=== PATIENT | male | born 1940 | race Caucasian/White ===

== ENCOUNTER → 2017-12-05 13:20 | Outpatient (CLI) | payer MEDICARE, OTHER, SELFPAY ==
--- NOTE | 2017-12-05 | DI.MG.S_ITS ---
MALE BILATERAL DIGITAL DIAGNOSTIC MAMMOGRAM 3D/2D: 12/05/2017 CLINICAL: Left breast lump. Family history of breast cancer. No prior exams were available for comparison. No significant masses, calcifications, or other findings are seen in either breast. IMPRESSION: INCOMPLETE: NEEDS ADDITIONAL IMAGING EVALUATION There is no mammographic abnormality seen in the left breast to correspond with the area of clinical concern, however, ultrasound is recommended. This exam was interpreted at Station ID: [id number]. NOTE: For mammograms, a report in lay terms will be sent to the patient. Approximately 15% of breast malignancies will not be visualized mammographically. In the management of a palpable breast mass, a negative mammogram must not discourage biopsy of a clinically suspicious lesion. Electronically Signed By: Clarice gusman/patrick:12/05/2017 14:39:00 letter sent: Additional Imaging Needed ACR BI-RADS Category 0: Incomplete [id number]
--- NOTE | 2017-12-05 | DI.US.S_ITS ---
ULTRASOUND OF LEFT BREAST: 12/05/2017 CLINICAL: Palpable left breast lump. Comparison is made to exam dated: 12/05/2017 [facility]. Ultrasound of the left breast was performed on the area of interest. Avalos scale images of the real-time examination were reviewed. IMPRESSION: NEGATIVE There is no sonographic evidence of malignancy. There is no mammographic or sonographic abnormality seen in the left breast to correspond with the area of clinical concern in the lower inner quadrant, however, clinical followup is recommended. This exam was interpreted at Station ID: [id number]. Electronically Signed By: Clarice gusman/patrick:12/05/2017 17:30:47 letter sent: Clinical Evaluation Ultrasound BI-RADS: 1 Negative
== END ==
PROVIDERS: Family Provider Family Medicine; PCP Family Medicine; Visit Provider Family Medicine
DX: R92.8 Other abnormal and inconclusive findings on diagnostic imaging of breast (principal); N63.20 Unspecified lump in the left breast, unspecified quadrant; Z80.3 Family history of malignant neoplasm of breast
CPT/HCPCS: 76642; 77066; G0279

== ENCOUNTER → 2018-03-19 12:48 | Outpatient (CLI) | payer MEDICARE, OTHER, SELFPAY ==
--- NOTE | 2018-03-19 | DI.RAD.S_ITS ---
PROCEDURE: XR CHEST 2V INDICATIONS: COUGH TECHNIQUE: 2 views of the chest were acquired. COMPARISON: [facility], , CHEST 2 VIEW, 06/07/2016, 13:07. FINDINGS: Surgical changes and devices: None. Lungs and pleura: No pleural effusions or pneumothorax. No acute consolidation. Scattered subsegmental atelectasis and/or scarring. A previously described presumed right nipple shadow is less conspicuous Mediastinum: Mediastinal contours are normal. Heart size is normal. Bones and chest wall: Bilateral shoulder degeneration. Soft tissues appear unremarkable. IMPRESSION: No acute consolidation. Scattered subsegmental atelectasis and/or scarring Dictated by: Matt Cruz M.D. on 03/19/2018 at 14:40 Approved by: Matt Cruz M.D. on 03/19/2018 at 14:42
== END ==
PROVIDERS: Family Provider Family Medicine; PCP Family Medicine; Visit Provider Family Medicine
DX: R05 Cough (principal)
CPT/HCPCS: 71046

== ENCOUNTER → 2019-04-15 08:36 | Outpatient (CLI) | payer MEDICARE, OTHER, SELFPAY ==
--- NOTE | 2019-04-15 | DI.US.S_ITS ---
PROCEDURE: US CAROTID DOPPLER BI INDICATIONS: HTN TECHNIQUE: Color and pulse Doppler interrogation was performed of both carotid systems, with image documentation and velocity measurements. COMPARISON: [facility], , CAROTID ARTERY DOPPLER BILAT, 08/05/2010, 12:22. FINDINGS: Stenosis calculations are based on SRU (Society of Radiologists in Ultrasound) criteria. Right side: Brachial blood pressure: 118/66 mm Hg. Common carotid artery peak systolic velocity: 100 cm/sec. Internal carotid artery peak systolic velocity: 50 cm/sec. Internal carotid artery end diastolic velocity: 13 cm/sec. External carotid artery peak systolic velocity: 74 cm/sec. ICA/CCA peak systolic ratio: 0.5. Avalos scale imaging description: Moderate scattered plaque. Percent internal carotid artery stenosis: Less than 50%. Vertebral artery: Flow direction is antegrade. Left side: Brachial blood pressure: 119/71 mm Hg. Common carotid artery peak systolic velocity: 116 cm/sec. Internal carotid artery peak systolic velocity: 75 cm/sec. Internal carotid artery end diastolic velocity: 19 cm/sec. External carotid artery peak systolic velocity: 224 cm/sec. ICA/CCA peak systolic ratio: 0.6. Avalos scale imaging description: Heavy scattered plaque. Percent internal carotid artery stenosis: Less than 50%. Vertebral artery: Flow direction is antegrade. IMPRESSION: Less than 50% bilateral internal carotid artery stenosis. Dictated by: Jayson Hong [facility] Interpreted: Jose Gill MD on 04/15/2019 at 9:35 Approved by: Jose Gill M.D. on 04/15/2019 at 10:29
--- NOTE | 2019-04-15 | DI.RAD.S_ITS ---
PROCEDURE: XR CERVICAL SPINE 2V OR 3V INDICATIONS: Cervicalgia TECHNIQUE: 3 view(s) of the cervical spine were acquired. COMPARISON: None. FINDINGS: Bones: No fractures or dislocations to the T1 level. The lateral masses of C1 appear intact on the odontoid view. No suspicious bony lesions. Mild to moderate degenerative disc disease is present along the cervical spine most prominent at C3-C4, without subluxation. Note is made of C6-C7 osseous fusion, without a surgical fixation plate. Soft tissues: No prevertebral soft tissue swelling. IMPRESSION: Moderate degenerative disc disease along the cervical spine most prominent at C3-C4 without subluxation or evidence of prior trauma. Prior osseous fusion C6-C7 seen on the lateral view, and it is unclear whether this represents an operative intervention or a congenital variant. Dictated by: Chris Dykes M.D. on 04/15/2019 at 10:08 Approved by: Chris Dykes M.D. on 04/15/2019 at 10:27
== END ==
PROVIDERS: Family Provider Family Medicine; PCP Family Medicine; Visit Provider Family Medicine
DX: I65.23 Occlusion and stenosis of bilateral carotid arteries (principal); I10 Essential (primary) hypertension; M50.31 Other cervical disc degeneration, high cervical region; Z98.1 Arthrodesis status
CPT/HCPCS: 72040; 93880

== ENCOUNTER → 2020-02-26 11:05 | Outpatient (CLI) | payer MEDICARE, OTHER, SELFPAY ==
--- NOTE | 2020-02-26 11:09 | DI.RAD.S_ITS ---
PROCEDURE: XR CHEST 2V INDICATIONS: NECK PAIN TECHNIQUE: 2 views of the chest were acquired. COMPARISON: [facility], , XR CHEST 2V, 03/19/2018, 12:56. [facility], , CHEST 2 VIEW, 06/07/2016, 13:07. FINDINGS: Surgical changes and devices: None. Lungs and pleura: Lungs are abnormal with severe pulmonary hyperexpansion and a chronic interstitial prominence slightly greater on the right than the left. No pleural effusions or pneumothorax. Mediastinum: Mediastinal contours are normal. Heart size is normal. Bones and chest wall: No suspicious bony abnormalities. Soft tissues appear unremarkable. IMPRESSION: Stable over time, severe COPD and mild chronic asymmetric right greater than left interstitial prominence. A source of neck pain is not seen. Dictated by: Chris Dykes M.D. on 02/26/2020 at 11:49 Approved by: Chris Dykes M.D. on 02/26/2020 at 11:50
--- NOTE | 2020-02-26 11:09 | DI.RAD.S_ITS ---
PROCEDURE: XR CERVICAL SPINE 2V OR 3V INDICATIONS: NECK PAIN TECHNIQUE: 3 view(s) of the cervical spine were acquired. COMPARISON: [facility], CR, XR CERVICAL SPINE 2V OR 3V, 04/15/2019, 8:41. FINDINGS: Bones: No fractures or dislocations to the T1 level. The lateral masses of C1 appear intact on the odontoid view. No suspicious bony lesions. [id number] degenerative disc disease, note is made again of osseous fusion between C6 and C7, possibly congenital. Soft tissues: No prevertebral soft tissue swelling. IMPRESSION: No change in the cervical spine from comparison study April of this year, no trauma found. Dictated by: Chris Dykes M.D. on 02/26/2020 at 11:50 Approved by: Chris Dykes M.D. on 02/26/2020 at 11:52
== END ==
PROVIDERS: Family Provider Family Medicine; PCP Family Medicine; Referring Provider Family Medicine; Visit Provider Family Medicine
DX: M54.2 Cervicalgia (principal); J43.9 Emphysema, unspecified; N50.89 Other specified disorders of the male genital organs; G60.9 Hereditary and idiopathic neuropathy, unspecified; I10 Essential (primary) hypertension; F17.210 Nicotine dependence, cigarettes, uncomplicated; Z86.010 Personal history of colon polyps
CPT/HCPCS: 71046; 72040; 99214

== ENCOUNTER → 2020-02-29 13:53 | Outpatient (CLI) | payer MEDICARE, OTHER, SELFPAY ==
[2020-02-29 14:47] LABS: COVID19 -Nasal RAPID POSITIVE (Negative)
== END ==
PROVIDERS: Family Provider Family Medicine; PCP Family Medicine; Visit Provider Nurse Practitioner
DX: U07.1 COVID-19 (principal)
CPT/HCPCS: 87635

== ENCOUNTER → 2020-04-04 10:02 | Outpatient (CLI) | payer MEDICARE, OTHER, SELFPAY ==
[2020-04-04 11:43] LABS: COVID19 -Nasal RAPID Negative (Negative)
== END ==
PROVIDERS: Family Provider Family Medicine; PCP Family Medicine; Visit Provider Physician Assistant
DX: Z01.812 Encounter for preprocedural laboratory examination (principal); Z20.822 Contact with and (suspected) exposure to COVID-19
CPT/HCPCS: 87635; C9803

== ENCOUNTER 2020-04-06 07:17 | Day surgery (SDC) | payer MEDICARE, OTHER, SELFPAY ==
[2020-04-01 12:49] VITALS: BMI 22.3
[2020-04-06] VITALS (20 sets, daily range): BP systolic 91–144; BP diastolic 46–74; PULSE 72–88; RESP 11–27; TEMP 36.1–36.9; O2SAT 85–98; BMI 22.4
--- NOTE | 2020-04-06 | PATH_ITS ---
[facility] Accession Number: [id number] . 01 Material submitted: . PART A: colon - ASCENDING COLON POLYPS PART B: colon - TRANSVERSE COLON POLYP PART C: colon - COLON POLYP AT 60 CM PART D: perineum - PERINEAL AND PERIANAL SKIN . 01 Clinical history: . DX COLONOSCOPY W/EXCISION CYSTS . 01 Diagnosis: A. Ascending Colon, Polyps: Fragments of tubular adenoma. . B. Transverse Colon, Polyp: Tubular adenoma. . C. Colon at 60 cm, Polyp: Tubular adenoma. . D. Perineal and Perianal Skin, Excisions: One ellipse of skin with epidermoid cysts with evidence of prior rupture. One ellipse of skin with deep granulation tissue and edema with a single foreign body-type granuloma, suggestive of ruptured cyst. No evidence of neoplasm. [facility] 04/10/2020 1458 Local . 01 Comment: As part of routine senior manager quality assurance, part D of this case has been reviewed by Dr. Clemons, dermatopathologist, who agrees with the diagnosis above. . 01 Electronically signed: . Blas Lim MD, PhD, Pathologist NPI- [id number] . 01 Gross description: . A. Received in formalin, labeled ascending colon polyp consists of four donis-pink fragments of soft tissue measuring 1.3 x 1.0 x 0.3 cm in aggregate. The margin of the largest fragment is inked blue and the fragment is bisected. The specimen is entirely submitted in cassette A1. B. Received in formalin, labeled transverse colon polyp consists of a 0.5 x 0.4 x 0.3 cm donis fragment of soft tissue which is entirely submitted in cassette B1. C. Received in formalin, labeled colon polyp at 60 cm consists of two donis-pink fragments of soft tissue measuring 0.7 x 0.6 x 0.3 cm in aggregate. The specimen is entirely submitted in cassette C1. D. Received in formalin, labeled perineal and perianal skin consists of two irregular donis-pink wrinkled fragments of skin measuring 2.0 x 1.5 x 1.3 cm and 9.5 x 3.0 x 1.5 cm. The margins are inked blue and black, and sales representative groceries sections are submitted in cassettes D1-D2. ([id number]) /MRV 04/08/2020 1519 Local . 01 Pathologist provided ICD-10: D12.2, D12.3, D12.6, L72.0 . 01 CPT . 577855, 522820, 325143, 406071 Performed at: 01 [facility] [address] [place] [address], [place], [place] [id number] MD Willie Zurita MD Phone: [phone]
[2020-04-06] MEDS: LACTATED RINGERS 1,000 ML 42 ML IV ×2 (08:00→10:12)
--- NOTE | 2020-04-06 08:55 | PM.HP.1 ---
History of Present Illness History of Present Illness Date Patient Seen: 04/06/20 Time Patient Seen: 08:42 Chief complaint: DX COLONSOCPY W/EXCISION CYSTS Narrative: The patient is a gentleman who is here for a colonoscopy and removal of cysts in his perineum. He was actually scheduled to have this weeks ago but was COVID positive and the operation was delayed. He has a history of polyps. He was actually advised to have a colonoscopy 2 years ago and is just coming in for it now. He has COVID negative at this time. He never had any symptoms. Patient History Medical History Arthritis Cigarette smoker COPD (chronic obstructive pulmonary disease) Easy bruisability Emphysema of lung Hypertension Kidney stones Left inguinal hernia Peripheral neuropathy Pneumonia Sleep apnea Spinal stenosis Ulcer Surgical History History of colonoscopy History of nasal surgery (~1958) History of surgery (~1952) History of surgery Hx of appendectomy (~1950) Hx of hernia repair (2017) Status post left inguinal hernia repair Family & Social History Social History: household members spouse Tobacco & Substance use: Tobacco type cigarettes Smoking Status Current every day smoker Smoking packs per day 2 alcohol intake current alcohol intake frequency a few times a week Substance Use Type does not use Meds Home Medications and Allergies Home Medications Medication Instructions Recorded Confirmed Type ascorbic acid (vitamin C) 1,000 mg PO QDAY #0 07/06/11 04/06/20 History cholecalciferol (vitamin D3) 125 mcg PO DAILY #0 07/06/11 04/06/20 History [Vitamin D3] hydrochlorothiazide 25 mg PO QDAY #0 07/06/11 04/06/20 History lisinopril 40 mg PO QDAY #0 07/06/11 04/06/20 History vitamin E 400 unit PO DAILY #0 07/06/11 04/06/20 History omega 9-dls-ntm-fish oil [Fish Oil] 1,000 mg PO TID #0 03/08/17 04/06/20 History omeprazole 20 mg PO QDAY #0 03/08/17 04/06/20 History oxycodone-acetaminophen [Percocet] 1 - 2 tab PO Q6HP PRN #20 tab 03/09/17 02/26/20 Rx albuterol sulfate [ProAir HFA] 2 puff INHALATION Q4-6H PRN 04/01/20 04/06/20 History celecoxib [Celebrex] 100 mg PO TID 04/01/20 04/06/20 History fluticasone propionate 1 spray INTRANASAL BID 04/06/20 04/06/20 History vitamin H98-hesfk acid 1 tab PO DAILY 04/06/20 04/06/20 History Allergies Allergy/AdvReac Type Severity Reaction Status Date / Time ampicillin [From UNASYN] Allergy Unknown RASH, Verified 04/06/20 07:58 MUSCULAR PAIN sulbactam [From UNASYN] Allergy Unknown RASH, Verified 04/06/20 07:58 MUSCULAR PAIN Review of Systems Review of Systems Narrative: Patient has chronic obstructive pulmonary disease and used his inhaler this morning. Does not have any cardiac disease known though he does have hypertension. He does have some pain with defecation. His stools have been hard and he has to strain. He has started taking a stool softener. Exam Vital Signs (past 8 hours): - 04/06/20 07:46 Temperature 98.4 F Pulse Rate 85 Respiratory Rate 16 Blood Pressure 144/74 H Pulse Oximetry 93 Oxygen Delivery Method Room Air Narrative Exam Narrative: Pleasant cooperative patient no apparent distress. Lungs are clear to auscultation. No rales or rhonchi. Heart regular rate and rhythm no murmur gallop. Abdomen is soft nontender without mass. No obvious hernias. Patient is alert and oriented x3. Assessment & Plan Assessment & Plan narrative: The patient for a screening colonoscopy and removal of his perineal cysts. I have discussed the procedure with him. Risks of bleeding, infection, perforation which would necessitate major operation, failure to find remove all lesions, the potential tattoo were all discussed. All questions were answered. He wished to proceed.
--- NOTE | 2020-04-06 08:58 | PM.PREOP ---
Pre-operative Note COVID-19 COVID-19 status: Negative Result date/Date tested (Pos, Neg/Pending): 04/03/20 Interval Note History & Physical reviewed/Exam performed by Physician: Yes Changes to H&P: No
[2020-04-06] MEDS: CEFOTETAN 2 GM/50 ML PIGGYBACK IV (09:04)
--- NOTE | 2020-04-06 09:16 | SUR.OPER ---
Part 1: Supine on padded stretcher, head on pillow, arms atr sides, legs uncrossed, colonoscopy position
--- NOTE | 2020-04-06 09:17 | SUR.OPER ---
Part 2: Lithotomy on padded OR bed, head on pillow, arms secured on padded arm boards at <90 degrees abduction. Feet in candy canes.
[2020-04-06] MEDS: LIDOCAINE 1% W/EPI 20 ML INJ (09:40)
--- NOTE | 2020-04-06 11:32 | SUR.PHASEI ---
Patient to PACU in stable condition. Oral airway in place. RR even and unlabored with adequate rise and fall of chest wall noted. Lungs clear on auscultation. Abdomen soft. VSS.
--- NOTE | 2020-04-06 11:42 | SUR.PHASEI ---
Turned oxygen down from 4 liters via simple face mask to room air to assess oxygenation status.
--- NOTE | 2020-04-06 11:45 | PM.OP.1 ---
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 Multiple polyps in the past. Overdue for his colonoscopy. Last exam 5 years ago. He was advised to have 1 3 years. Post-op diagnosis: same (Extensive cystic disease extending from the right base of the scrotum to the right perianal skin. Multiple colonic polyps. Sigmoid diverticulosis.) Procedure & Clinicians Procedure: Colonoscopy with cold biopsy and hot snare polypectomy. Cauterization of multiple small lesions. Excision of cystic disease of the perineum and perianal skin. A knots could be. Same procedure as scheduled: Yes Indications: Chronic disease of perineum and a history of polyps. Surgeon: Saul Grayson Click Yes if Unassisted: Yes Anesthesia Type: General Operative Notes Findings: Extensive chronic granulation tissue involving the skin of the perineum extending up adjacent to the scrotum. Also extending down to the perianal skin. No evidence of an internal fistula. Closure Type: non-primary Specimen(s): other (Perianal skin and skin of the perineum) Estimated Blood Loss (mL): 40 Blood products transfused: none Procedure in detail: Patient is placed supine on his stretcher and underwent general LMA anesthesia. General anesthesia was required for his colonoscopy due to the pain in his perineum and the fact that a general surgical procedure was about to follow. Digital exam revealed a lax sphincter. Scope was inserted and advanced through the rectum into the sigmoid transverse and ascending colon. A reach the cecum identified by the ileocecal valve and the appendiceal opening. Polyps were found in the ascending colon. One of them was cold biopsied to remove it in the other 1 was hot snared to remove it. The scope was gradually brought out. There were polyps within the transverse colon which were biopsied or cauterized. These were all small. Additional polyps were found at 60 cm from the anal verge. There were 2 small polyps here these were both hot snared. There were small polyps near the anus which were tiny and I decided to simply cauterize them as they were over hemorrhoids. They appeared to be completely destroyed. The scope was retroflexed no other lesions were seen. Thus the scope was removed. Anoscope was inserted and I examined the area carefully for an internal opening of a fistula but none was seen. Using palpation as well as visualization I made a long elliptical incision around the disease in his perineum extending onto the right side of his perianal skin. Using cautery I dissected this infected tissue off the underlying tissues being careful to avoid any injury to his sphincters. The patient had extension from the perineum up adjacent to his scrotum. There was a tract which I opened and removed the skin and granulation tissue from. I cauterized any bleeding in any granulation tissue and cleared it with a curette. I loosely approximated the subcu tissues with 4-0 Vicryl stitches. I then loosely approximated the skin with interrupted 3-0 nylon sutures. There were large number of comedones in the perianal skin which I also removed the contents of to prevent further cystic infection. Dressing was applied and the patient was awakened extubated and taken the recovery room good condition. Complications: none Post-operative Condition: stable Disposition: PACU
[2020-04-06] MEDS: ALBUTEROL 2.5 MG/3 ML NEB (ADULT) INH ×2 (12:00→13:30)
--- NOTE | 2020-04-06 12:05 | SUR.PHASEI ---
Patient with oxygen saturation down to 88% on 2 liters via nasal cannula. Patient is a long-time smoker of 2 PPD and wears oxygen sporadically at home and has a CPAP. Duoneb treatment started and encouraged deep breathing.
--- NOTE | 2020-04-06 12:08 | SUR.PHASEI ---
Patient denies pain but is having a hard time getting in a position of comfort. Warm blanket provided and assisted patient onto his right side.
[2020-04-06] MEDS: OXYCODONE IR 5 MG TABLET PO (12:15)
--- NOTE | 2020-04-06 13:18 | SUR.PHASEI ---
Addendum entered by Emma Morel R.N. 04/06/20 13:35: RT evaluating patient. Reported off to Amber Smith RN who is resuming patient care. Original Note: In phase 1 patient remained unable to keep O2 sats over 90% even on 2L O2. Dr. Greene updated and came and evaluated patient. Received new order to have RT eval and treat and transfer to Phase 2 for continued oxygen monitoring. States she will come reevaluate patient in a couple of hours after RT has seen patient. Patient transferred to Phase 2 on 2L O2 and placed on continuous pulse oximeter. Call light within reach.
--- NOTE | 2020-04-06 14:15 | SUR.PHASEII ---
Assisted patient to bathroom. Patient denies SOB with ambulation. Changed patient's dressing and placed new mesh panties to patient. Patient tolerating coffee without diffculty. Reassessed oxygenation after patient back to stretcher. Oxygenation status 88-89% on room air. Encouraged use of acapella PeP device at bedside. Denies pain post surgical pain.
--- NOTE | 2020-04-06 14:25 | SUR.PHASEII ---
Patient able to maintain oxygen saturation of 89-92 %. Notified Dr Greene, who is comfortable allowing patient to go home. Advised patient to use oxygen all day today and be sure to use his CPAP at night. V/U. Patient denies SOB and is speaking in full sentences. Discharged home with in stable condition. RX provided for pain medication and antibiotic.
== END 2020-04-06 14:52 | disposition home or self-care (01) ==
PROVIDERS: Family Provider Family Medicine; PCP Family Medicine; Referring Provider Family Medicine; Visit Provider Specialist
PROC: (CPT 45385; principal; 2020-04-06 08:45)
PROC: 0DJD8ZZ Inspection of Lower Intestinal Tract, Via Natural or Artificial Opening Endoscopic (ICD-10-PCS; CPT 45378; 2020-04-06 08:45)
DX: Z12.11 Encounter for screening for malignant neoplasm of colon (principal); Z86.010 Personal history of colon polyps; J44.9 Chronic obstructive pulmonary disease, unspecified; Z99.81 Dependence on supplemental oxygen; I10 Essential (primary) hypertension; G47.33 Obstructive sleep apnea (adult) (pediatric); K57.30 Diverticulosis of large intestine without perforation or abscess without bleeding; F17.210 Nicotine dependence, cigarettes, uncomplicated; D12.2 Benign neoplasm of ascending colon; D12.3 Benign neoplasm of transverse colon; D12.6 Benign neoplasm of colon, unspecified; L72.0 Epidermal cyst; L08.89 Other specified local infections of the skin and subcutaneous tissue
CPT/HCPCS: 45385; 45380; 12047; 11426; 94640; 94762; J1100; J2250; J2405; J2704; J3010; J7613

== ENCOUNTER → 2020-06-10 13:33 | Outpatient (CLI) | payer MEDICARE, OTHER, SELFPAY ==
--- NOTE | 2020-06-10 | DI.US.S_ITS ---
PROCEDURE: US ABDOMEN COMPLETE INDICATIONS: Abnormal weight loss TECHNIQUE: Real-time scanning was performed of the abdominal and retroperitoneal organs, with image documentation. COMPARISON: [facility], CR, XR CHEST 2V, 06/10/2020, 13:36. [facility], US, ABDOMEN COMPLETE, 06/26/2014, 9:02. FINDINGS: Liver: Liver is normal in size and homogeneous in echotexture. Gallbladder: The gallbladder contains a 1.4 cm gallstone, at the fundus. The gallbladder wall thickness is normal at 1.3 mm. Biliary ducts: Intrahepatic bile ducts are non-dilated. Extrahepatic bile duct caliber measures 4.4 mm. Normal is 6-7 mm or less in diameter, or 10 mm or less post-cholecystectomy. Pancreas: Visualized portions of the pancreas are sonographically normal. Spleen: Spleen is normal in size and homogeneous in echotexture. Kidneys: Kidneys are normal in size and echotexture. Right kidney measures 11.7 cm long; left kidney measures 10.3 cm long. No hydronephrosis or nephrolithiasis. No solid masses. Each kidney contains a small cyst measuring up to 1.8 cm. Aorta: Visualized aorta is normal in caliber at less than 3 cm. Iliacs: Proximal common iliac arteries are normal in caliber at less than 2.5 cm. IVC: Intrahepatic inferior vena cava is patent. Miscellaneous: No free abdominal fluid. IMPRESSION: A definite source of weight loss is not found. The gallbladder contains a single 1.4 cm stone but shows no sign of inflammation. No adjacent bile duct distention is found. Depending on the clinical status follow-up by chest CT scanning with contrast may be warranted. Please refer to the findings on plain film report from today. Dictated by: Chris Dykes M.D. on 06/10/2020 at 15:58 Approved by: Chris Dykes M.D. on 06/10/2020 at 16:05
--- NOTE | 2020-06-10 | DI.RAD.S_ITS ---
PROCEDURE: XR CHEST 2V INDICATIONS: Abnormal weight loss TECHNIQUE: 2 views of the chest were acquired. COMPARISON: [facility], , CHEST 2 VIEW, 08/02/2012, 14:16. [facility], , CHEST 2 VIEW, 06/07/2016, 13:07. [facility], , XR CHEST 2V, 02/26/2020, 11:13. [facility], , XR CHEST 2V, 03/19/2018, 12:56. FINDINGS: Surgical changes and devices: None. Lungs and pleura: Lungs are abnormal with pulmonary hyperexpansion consistent with severe COPD and longstanding smoking history. There is greater lucency on the left than the right but this pattern has been previously present over multiple prior plain films. There is, however, a new finding at the right upper lobe where a band of radiodensity is present to the degree that a mass or pneumonia could be present.. No pleural effusions or pneumothorax. Mediastinum: Mediastinal contours are normal. Heart size is normal. Bones and chest wall: No suspicious bony abnormalities. Soft tissues appear unremarkable. IMPRESSION: Suspect mass or pneumonia right upper lobe. Severe COPD is present given the degree of hyperexpansion through the lungs that is identified. Follow-up by CT scanning should be obtained if plain film improvement does not occur with conservative therapy. Dictated by: Chris Dykes M.D. on 06/10/2020 at 15:42 Approved by: Chris Dykes M.D. on 06/10/2020 at 15:44
== END ==
PROVIDERS: Family Provider Family Medicine; PCP Family Medicine; Referring Provider Family Medicine; Visit Provider Family Medicine
DX: B34.2 Coronavirus infection, unspecified (principal); R63.4 Abnormal weight loss; J44.9 Chronic obstructive pulmonary disease, unspecified
CPT/HCPCS: 71046; 76700

== ENCOUNTER → 2020-07-17 09:29 | Outpatient (CLI) | payer MEDICARE, OTHER, SELFPAY ==
--- NOTE | 2020-07-17 09:47 | DI.CT.S_ITS ---
PROCEDURE: CT CHEST WO CON INDICATIONS: Chronic obstructive pulmonary disease TECHNIQUE: Noncontrast 5 mm thick sections acquired from the pulmonary apices to the posterior costophrenic angles. 1 mm lung window, 5 mm thick coronal and sagittal and 7 mm axial MIP reformats were then acquired. For radiation dose reduction, the following was used: automated exposure control, adjustment of mA and/or kV according to patient size. COMPARISON: None. FINDINGS: Image quality: Excellent. Lungs and pleura: Spiculated mass, right lower lobe, image 251/3, measuring 2.2 cm, highly suspicious for bronchogenic carcinoma. Moderate to severe biapical centrilobular emphysema. Extensive focal honeycomb formation and airspace consolidation versus consolidative mass in the right apex lobe. Reference images 77/3 and 54/6. Spiculated density, left upper lobe, image 77/3, measuring 1.5 cm, possibly representing scarring. Bronchogenic malignancy is not excluded. There is also a 0.6 x 1.0 cm nodular density in the left upper lobe on image 91/6. No pleural effusions or pneumothorax. Central and peripheral airways are patent and normal in caliber. Mediastinum: Heart size is normal. No pericardial effusion. Moderate coronary artery calcifications. Proximal great vessel calcifications. No mediastinal adenopathy by size criteria. Thoracic aorta and central pulmonary arteries are normal in size. Esophagus is normal in caliber. No hiatal hernia. Bones and chest wall: No suspicious bony lesions. No vertebral body compression fractures. No axillary or supraclavicular adenopathy by size criteria. Thyroid gland is unremarkable, as visualized. Abdomen: Visualized upper abdominal solid organs and bowel loops appear normal in the absence of contrast. IMPRESSION: 1. Moderate to severe centrilobular emphysema. 2. Spiculated mass, right lower lobe, 2.2 cm, highly suspicious for bronchogenic carcinoma. 3. Relatively diffuse right apical process with honeycombing and peripheral consolidation versus consolidative mass. Unknown etiology. Consider pneumonia. Cannot exclude a malignant process. 4. A 1.5 cm spiculated density in the left apex may potentially represent scarring. Cannot exclude malignancy. 5. 0.6 x 1.0 cm left upper lobe pulmonary nodule. Comment: Comparison with prior studies would be helpful if possible. Recommend PET-CT. This would confirm the right lower lobe lesion, and would possibly differentiate between scarring and malignancy in the left apex. Dictated by: Renny Hughes M.D. on 07/17/2020 at 13:27 Approved by: Renny Hughes M.D. on 07/17/2020 at 13:38
== END ==
PROVIDERS: Family Provider Family Medicine; PCP Family Medicine; Referring Provider Family Medicine; Visit Provider Family Medicine
DX: J43.2 Centrilobular emphysema (principal); R63.4 Abnormal weight loss; R91.8 Other nonspecific abnormal finding of lung field
CPT/HCPCS: 71250